=== PATIENT | female | born 1990 | race Caucasian/White ===

== ENCOUNTER 2016-09-09 05:10 | Inpatient (IN) | payer BC ==
[~2016-09-09] VITALS: Ht 165.1 cm; Wt 60.8 kg
[2016-09-09 06:43] VITALS: BP 129/78; RESP 20; TEMP 97
[2016-09-09] MEDS ORDERED: FLU VACC QS 2016-17(36MOS+)/PF 0.5 ML/SYR SYRINGE I.M. PRN (06:45)
[2016-09-09] MEDS ORDERED: LR 1,000 ML IV SCH (06:51)
[2016-09-09] MEDS ORDERED: OXYTOCIN/NORMAL SALINE 1,000 ML IV SCH (06:51)
[2016-09-09] MEDS ORDERED: LR 1,000 ML IV ONE (06:51)
[2016-09-09] MEDS ORDERED: NALBUPHINE HCL 10 MG/ML AMP IVP PRN (07:00)
[2016-09-09] MEDS ORDERED: TERBUTALINE SULFATE 1 MG/ML VIAL SUBCUT ONE (07:00)
[2016-09-09 07:36] LABS: BASOPHILS % (AUTO) 0.4 % (0.0-2.0); EOSINOPHILS % (AUTO) 0.2 % (0.0-4.0); HEMATOCRIT 39.3 % (36-48); HEMOGLOBIN 13.2 g/dL (12.0-16.0); LYMPHOCYTES # (AUTO) 1.1 K/uL (1.0-5.5); LYMPHOCYTES % (AUTO) 9.4 % (20.5-51.5); MEAN CORPUSCULAR HEMOGLOBIN 29 pg (27-31); MEAN CORPUSCULAR HGB CONC 34 % (32-36); MEAN CORPUSCULAR VOLUME 85 fL (79.0-98.0); MONOCYTES # (AUTO) 0.6 K/uL (0.0-1.0); MONOCYTES % (AUTO) 5.1 % (1.7-9.3); NEUTROPHILS # (AUTO) 9.6 K/uL (1.8-7.7); NEUTROPHILS % (AUTO) 84.9 % (40.0-70.0); PLATELET COUNT (AUTO) 191 K/uL (130-430); RED BLOOD CELL COUNT(AUTO) 4.61 MIL/uL (4.2-6.2); RED CELL DISTRIBUTION WIDTH 11.9 % (9.0-15.0); WHITE BLOOD COUNT (AUTO) 11.3 K/uL (4.8-10.8)
[2016-09-09] MEDS ORDERED: FENT2mCg/mL-ROPIVA0.2%/NS EPID 150 ML EP ONE (08:02)
[2016-09-09] MEDS ORDERED: OXYTOCIN/NORMAL SALINE 1,000 ML IV ONE (14:10)
[2016-09-09] MEDS ORDERED: DERMOPLAST SPRAY TP PRN (14:15)
[2016-09-09] MEDS ORDERED: OXYCODONE/ACETAMINOPHEN 5-325 TABLET PO PRN ×2 (14:15)
[2016-09-09] MEDS ORDERED: GLYCERIN/WITCH HAZEL (TUCKS PADS) TP PRN (14:15)
[2016-09-09] MEDS ORDERED: LANOLIN 7 GM OINT. TP PRN (14:15)
[2016-09-09] MEDS ORDERED: ANUSOL 1 EA SUPP.RECT (PREPARATION H) RC PRN (14:15)
[2016-09-09] MEDS ORDERED: MEASLES,MUMPS&RUBELLA VACC/PF 12500 UNIT/0.5 ML VIAL SUBQ PRN (14:15)
[2016-09-09] MEDS ORDERED: SENNOSIDES/DOCUSATE SODIUM 1 TAB TABLET(SENOKOT-S) PO PRN (14:15)
[2016-09-09] MEDS ORDERED: HYDROCORTISONE 0.5%, 28.35 GM TOPICAL CREAM TP PRN (14:15)
[2016-09-09] MEDS ORDERED: METHYLERGONOVINE MALEATE 0.2 MG TABLET PO PRN (14:15)
[2016-09-09] MEDS ORDERED: DOCUSATE SODIUM 100 MG CAPSULE PO PRN (14:15)
[2016-09-09] MEDS: IBUPROFEN 600 MG TABLET PO SCH ×2 (17:58→23:45)
[2016-09-09] MEDS ORDERED: TEMAZEPAM 15 MG CAPSULE PO PRN (21:00)
[2016-09-10] MEDS: IBUPROFEN 600 MG TABLET PO SCH ×4 (06:47→23:47)
[2016-09-10 07:11] LABS: HEMATOCRIT 30.3 % (36-48)
[2016-09-11] MEDS: IBUPROFEN 600 MG TABLET PO SCH (06:08)
[2016-09-11] MEDS ORDERED: DIPH-TET-PERTUS Vaccine 0.5 ML VIAL/Tdap (ADACEL) I.M. PRN (11:00)
== END 2016-09-11 10:00 | disposition home or self-care (01) | DRG 775 ==
LOC: SPU 05:10
PROVIDERS: ADMIT Specialist; ATTEND Specialist
PROC: 10E0XZZ Delivery of Products of Conception, External Approach (ICD-10-PCS; principal; 2016-09-09)
PROC: 3E0S3CZ (ICD-10-PCS; 2016-09-09)
PROC: 00HU33Z Insertion of Infusion Device into Spinal Canal, Percutaneous Approach (ICD-10-PCS; 2016-09-09)
PROC: 0W8NXZZ Division of Female Perineum, External Approach (ICD-10-PCS; 2016-09-09)
PROC: 30233N1 Transfusion of Nonautologous Red Blood Cells into Peripheral Vein, Percutaneous Approach (ICD-10-PCS; 2016-09-09)
DX: O80 Encounter for full-term uncomplicated delivery (principal); Z37.0 Single live birth; Z3A.38 38 weeks gestation of pregnancy
CPT/HCPCS: 36415; 81002-TC; 85018-TC; 85025; 86870; 86886; 86900; 86901; J2300; J2590; J2790; J3010